=== PATIENT | female | born 1965 | race Caucasian/White ===

== ENCOUNTER 2023-10-09 10:09 | Observation (INO) ==
[~2023-10-09 10:09] MED LIST: Buffered Lidocaine 1% SYRIN 1 ml INTRADERM ONE; Lactated Ringers 1000 ml BAG 1,000 ML IV SCH
[2023-10-09] MEDS ORDERED: HYDROmorphone 1 MG/1 ML SYRINGE IV PRN (13:40)
[2023-10-09] MEDS ORDERED: Naloxone 0.4 mg VIAL 0.4 mg/ml 1 ml VIAL IV PRN (13:40)
[2023-10-09] MEDS ORDERED: Ondansetron 4 mg VIAL 2 MG/ML 2 ml VIAL IV PRN (13:40)
[2023-10-09] MEDS ORDERED: fentaNYL 100 mcg/2 ml 50 MCG/ML VIAL IV PRN (13:40)
[2023-10-09] MEDS ORDERED: ceFAZolin 2 GM in NS PREMIX 2 GM/100 ML BAG IVPB ONE (14:02)
[2023-10-09] MEDS ORDERED: Rocuronium 50 mg VIAL 10 mg/ml 5 ml VIAL (50 mg) ONE ×3 (14:55→16:45)
[2023-10-09] MEDS ORDERED: fentaNYL 100 mcg/2 ml 50 MCG/ML VIAL ONE ×3 (14:56→17:03)
[2023-10-09] MEDS ORDERED: Midazolam 2 mg/2 ml VIAL 1 mg/ml 2 ml VIAL (2 mg) ONE (15:01)
[2023-10-09] MEDS ORDERED: Lidocaine 2% PF 5 ML VIAL ONE (15:02)
[2023-10-09] MEDS ORDERED: Phenylephrine IV 10 MG/ML 1 ml VIAL ONE (15:02)
[2023-10-09] MEDS ORDERED: Ondansetron 4 mg VIAL 2 MG/ML 2 ml VIAL ONE (15:20)
[2023-10-09] MEDS ORDERED: Propofol 10 MG/ML 20 ML BTL ONE (15:20)
[2023-10-09] MEDS ORDERED: Dexamethasone IV 4 MG/ML VIAL 1 ml VIAL ONE (15:20)
[2023-10-09] MEDS ORDERED: Acetaminophen IV 1 GM/100ML 1,000 MG/100 ML BAG IV ONE (16:50)
[2023-10-09] MEDS ORDERED: Sterile Water for Inj 10 ML ONE (16:50)
[2023-10-09] MEDS ORDERED: Lidocaine 1% w EPI 1:100,000 MDV 20 ML VIAL ONE (17:05)
[2023-10-09] MEDS ORDERED: Bupivacaine 0.5% 50 ML MDV VIAL ONE (17:05)
[2023-10-09] MEDS ORDERED: HYDROmorphone 0.5 MG/0.5 ML SYRINGE ONE ×3 (17:11→18:58)
[2023-10-09] MEDS ORDERED: hydrALAZINE 20 mg/ml 1 ML Vial IV ONE (18:30)
[2023-10-09] MEDS ORDERED: HYDROmorphone 1 MG/1 ML SYRINGE ONE (20:28)
[2023-10-09 21:12] LABS: Rapid COVID-19 Molecular Undetected (Undetected)
[2023-10-10] MEDS ORDERED: Influenza vaccine *QUAD* *2023-24* 0.5 ML SYRINGE IM ONE (09:00)
[2023-10-10 09:50] LABS: Platelet Count 366 10^3/uL (150-450)
[2023-10-10 10:12] LABS: Hematocrit 35.2 % (35-45); Mean Platelet Volume 8.2 fL (7.5-11.2)
[2023-10-10 14:00] VITALS: BP 142/85
== END 2023-10-10 15:20 | disposition home or self-care (01) ==
LOC: OR 10:09 → SSU 10:09
PROVIDERS: ADMIT Orthopaedic Surgery Sports Medicine; ATTEND Orthopaedic Surgery Sports Medicine